=== PATIENT | female | born 2000 | race Two or more races ===

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

== ENCOUNTER 2023-12-21 01:07 | Emergency (ER) | payer MEDICAID, OTHER ==
[~2023-12-21] VITALS: Ht 177.8 cm; Wt 71.2 kg
[2023-12-21] MEDS: IV NORMAL SALINE 1000 ML BAG IV ONE (01:51)
[2023-12-21 02:03] LABS: BASOPHILS # (AUTO) 0.1 K/UL (0.0-0.2); BASOPHILS % (AUTO) 1.1 % (0.0-2.0); EOSINOPHILS # (AUTO) 0.1 K/uL (0.0-0.7); EOSINOPHILS % (AUTO) 0.8 % (0.0-7.0); HEMATOCRIT 35.3 % (31.2-41.9); HEMOGLOBIN 11.9 g/dL (10.9-14.3); LYMPHOCYTES # (AUTO) 2.7 K/uL (0.8-4.8); LYMPHOCYTES % (AUTO) 36.6 % (20.5-51.5); MEAN CORPUSCULAR HEMOGLOBIN 28.1 uug (24.7-32.8); MEAN CORPUSCULAR HGB CONC 34 g/dL (32.3-35.6); MEAN CORPUSCULAR VOLUME 83.4 fL (75.5-95.3); MONOCYTES # (AUTO) 0.5 K/uL (0.1-1.30); MONOCYTES % (AUTO) 6.3 % (0.0-11.0); NEUTROPHILS # (AUTO) 4.1 K/uL (1.8-8.9); NEUTROPHILS % (AUTO) 55.2 % (38.5-71.5); PLATELET COUNT (AUTO) 311 K/uL (179-408); RED BLOOD CELL COUNT(AUTO) 4.23 MIL/uL (3.63-4.92); RED CELL DISTRIBUTION WIDTH 14.4 % (12.3-17.7); WHITE BLOOD COUNT (AUTO) 7.4 K/uL (3.8-11.8)
[2023-12-21 02:09] LABS: ETHANOL 182 MG/DL (0-10)
[2023-12-21 02:19] LABS: ACETAMINOPHEN < 10.0 ug/mL (10-30); ALANINE AMINOTRANSFERASE 25 U/L (14-59); ALBUMIN 4.1 g/dL (3.4-5.0); ALKALINE PHOSPHATASE 45 U/L (50-136); ASPARTATE AMINOTRANSFERASE 10 U/L (15-37); BILIRUBIN,DIRECT < 0.1 mg/dL (0.0-0.2); BILIRUBIN,TOTAL 0.3 mg/dL (0.2-1.0); CARBON DIOXIDE 23 mmol/L (21-32); CHLORIDE 106 mmol/L (98-107); CREATININE 0.5 mg/dL (0.6-1.3); GLUCOSE 95 mg/dL (74-106); POTASSIUM 3.4 mmol/L (3.5-5.1); SODIUM SERUM 143 mmol/L (136-145); TOTAL PROTEIN, SERUM 7.5 g/dL (6.4-8.2); UREA NITROGEN, BLOOD 11 mg/dL (7-18)
[2023-12-21 02:27] LABS: PREGNANCY TEST SERUM QUAN < 1 miul/L (0-6)
[2023-12-21 02:32] LABS: ACETONE, SERUM NEGATIVE (NEGATIVE)
[2023-12-21 02:54] VITALS: BP 124/76; O2SAT 98
== END 2023-12-21 02:54 | disposition home or self-care (01) ==
LOC: ER 01:16
DX: R11.10 Vomiting, unspecified (principal); R10.2 Pelvic and perineal pain; Z90.89 Acquired absence of other organs; Z60.2 Problems related to living alone
CPT/HCPCS: 80076; 80048; 82009; 83690; 85025; 84702; 36415; 99283; 96360; 80299; 80320; J7040; A4606; A4663; G0480